=== PATIENT | male | born 1980 ===

== ENCOUNTER 2017-12-20 20:58 | Emergency (ER) | payer OTHER ==
[2017-12-20 22:02] VITALS: BP 135/86; PULSE 84; RESP 20; TEMP 98; O2SAT 98
--- NOTE | 2017-12-20 23:37 | ED PDOC ---
HPI: General Adult Time Seen by Provider: 12/20/17 22:52 Chief Complaint (Nursing): Flu-like Symptoms History Per: Patient Additional Complaint(s): 37-year-old male reports 3 days of fever with cough, chills, bodyaches, sore throat, and runny nose. Otherwise: (-) SOB, (-) chest pain, (-) N/V/D, (-) abdominal pain, (-) flank pain, (-) urinary symptoms, (-) recent travel, (-) sick contacts. Past Medical History Vital Signs: Last Vital Signs Temp 98 F 12/20/17 21:58 Pulse 84 12/20/17 21:58 Resp 20 12/20/17 21:58 BP 135/86 12/20/17 21:58 Pulse Ox 98 12/20/17 21:58 - Medical History PMH: No Chronic Diseases - Family History Family History: States: No Known Family Hx - Immunization History Hx Tetanus Toxoid Vaccination: No Hx Influenza Vaccination: No Hx Pneumococcal Vaccination: No - Home Medications Home Medications: Ambulatory Orders Medication Instructions Recorded Guaifenesin 400 mg PO QID #20 tablet 12/20/17 Ibuprofen [Motrin Tab] 600 mg PO QID PRN #20 tab 12/20/17 - Allergies Allergies/Adverse Reactions: Allergies Allergy/AdvReac Type Severity Reaction Status Date / Time No Known Allergies Allergy Verified 12/20/17 21:58 Review of Systems Constitutional: Positive for: Fever, Chills, Malaise ENT: Positive for: Nose Discharge, Throat Pain. Negative for: Ear Pain Cardiovascular: Negative for: Chest Pain, Palpitations Respiratory: Positive for: Cough. Negative for: Shortness of Breath Gastrointestinal: Negative for: Nausea, Vomiting, Abdominal Pain Genitourinary Male: Negative for: Dysuria, Frequency Skin: Negative for: Rash Physical Exam - Physical Exam Comments: GENERAL APPEARANCE: Patient is awake, alert, oriented x 3, in no acute distress. SKIN: Warm, dry; (-) cyanosis, (-) rash. EYES: (-) conjunctival pallor, (-) scleral icterus, (-) conjunctival hemorrhage. ENMT: Mucous membranes moist. TMs: (-) erythema. Airway patent: (-) stridor. Pharynx: (-) erythema, (-) exudate. NECK: (-) tenderness, (-) stiffness, (-) meningismus, (-) lymphadenopathy. CHEST AND RESPIRATORY: (-) accessory muscle use. Lungs: (-) rales, (-) rhonchi, (-) wheezes, (-) rub; breath sounds equal bilaterally. HEART AND CARDIOVASCULAR: (-) irregularity; (-) murmur, (-) gallop, (-) rub. ABDOMEN AND GI: Soft; (-) tenderness, (-) guarding; (-) organomegaly; (-) mass ; (-) CVA tenderness. EXTREMITIES: (-) deformity; (-) cellulitis, (-) lymphangitis; (-) subungual hemorrhage; (-) edema. NEURO AND PSYCH: Mental status as above; (-) focal findings. - ECG O2 Sat by Pulse Oximetry: 98 Medical Decision Making Medical Decision Making: Diagnoses of possible influenza discussed with the patient in great detail. Advised bedrest, drink plenty of fluids. Advised to follow up with primary care physician or the clinic in 1-2 days without fail. Advised to take medication as prescribed. Return to the emergency room at any time for any new or worsening symptoms. Patient states he fully agrees with and understands discharge instructions. States that he agrees with the plan and disposition. Verbalized and repeated discharge instructions and plan. I have given the patient opportunity to ask any additional questions. Disposition - Clinical Impression Clinical Impression: Influenza-like symptoms - Patient ED Disposition Is Patient to be Admitted: No Counseled Patient/Family Regarding: Diagnosis, Need For Followup, Rx Given - Disposition Referrals: [facility] [Outside] Disposition: Routine/Home Disposition Time: 23:30 Condition: STABLE Additional Instructions: Thank you for letting us take care of you today. You were treated for influenza. The emergency medical care you received today was directed at your acute symptoms. If you were prescribed any medication, please fill it and take as directed. It may take several days for your symptoms to resolve. Return to the Emergency Department if your symptoms worsen, do not improve, or if you have any other problems. Please contact your doctor in 2 days for re-evaluation and follow up / or call one of the physicians/clinics you have been referred to that are listed on the Patient Visit Information form that is included in your discharge packet. Bring any paperwork you were given at discharge with you along with any medications you are taking to your follow up visit. Our treatment cannot replace ongoing medical care by a primary care provider (PCP) outside of the emergency department. Thank you for allowing the [facility] team to be part of your care today. Prescriptions: Guaifenesin 400 mg PO QID #20 tablet Ibuprofen [Motrin Tab] 600 mg PO QID PRN #20 tab PRN Reason: Fever >100.4 F Instructions: Influenza (ED) Forms: [employer] (Armenian), [facility] ED School/Work Excuse Print Language: KOREAN - PA / TOOLING MANAGER / Resident Statement MD/DO has reviewed & agrees with the documentation as recorded.
== END 2017-12-20 23:55 | disposition home or self-care (01) ==
LOC: H.ER 20:58
DX: J11.1 Influenza due to unidentified influenza virus with other respiratory manifestations (principal)